=== PATIENT | male | born 1950 | race Caucasian/White ===

== ENCOUNTER 2017-08-30 12:13 | Emergency (ER) | payer MEDICARE ==
[2017-08-30 12:38] LABS: BASOPHILS 0.6 % (0-2); EOSINOPHILS 3.9 % (0-7); HEMATOCRIT 41.8 % (42.0-54.0); HEMOGLOBIN 14.1 g/dL (13.5-17.5); IMMATURE GRANULOCYTES 0.4 % (0-5); LYMPHOCYTES 35.8 % (15-50); MCH 31.2 pg (26.0-34.0); MCHC 33.7 g/dL (31.0-37.0); MCV 92.5 fL (80.0-100.0); MEAN PLATELET VOLUME 9.6 fL (7.4-10.4); MONOCYTES 7.4 % (2-11); NEUTROPHILS 51.9 % (40-80); PLATELET COUNT 174 10x3/uL (130-400); RBC 4.52 10x6/uL (4.20-6.10); RDW 13.2 % (11.5-14.5); WBC 6.7 10x3/uL (4.8-10.8)
[2017-08-30 12:51] LABS: ALBUMIN 3.2 g/dL (3.4-5.0); ANION GAP 16.5 mmol/L (8-16); BILIRUBIN - TOTAL 0.17 mg/dL (0.2-1.3); CALCIUM 8.3 mg/dL (8.5-10.1); CARBON DIOXIDE 21.9 mmol/L (21.0-32.0); CREATININE - SERUM 1.6 mg/dL (0.6-1.3); POTASSIUM - SERUM 3.4 mmol/L (3.5-5.1); PROTEIN - SERUM 6.3 g/dL (6.4-8.2)
[2017-08-30 13:13] LABS: APPEARANCE CLEAR (CLEAR); BILIRUBIN NEGATIVE (NEGATIVE); COLOR YELLOW (YELLOW); GLUCOSE NEGATIVE (NEGATIVE); KETONE NEGATIVE (NEGATIVE); NITRITE NEGATIVE (NEGATIVE); PROTEIN NEGATIVE (NEGATIVE); SPECIFIC GRAVITY 1.015 (1.005-1.020); UROBILINOGEN NORMAL (NORMAL)
[2017-08-30 13:14] LABS: UDS - AMPHET NEGATIVE QUAL (NEGATIVE); UDS - BARB NEGATIVE QUAL (NEGATIVE); UDS - BENZO NEGATIVE QUAL (NEGATIVE); UDS - COCAINE NEGATIVE QUAL (NEGATIVE); UDS - OPIATE NEGATIVE QUAL (NEGATIVE); UDS - PCP NEGATIVE QUAL (NEGATIVE); UDS - THC NEGATIVE QUAL (NEGATIVE)
== END 2017-08-30 20:50 | disposition home or self-care (01) ==
LOC: D.ER 12:13
PROVIDERS: Family Medicine
DX: F10.10 Alcohol abuse, uncomplicated (principal); I95.9 Hypotension, unspecified; F10.129 Alcohol abuse with intoxication, unspecified; I44.0 Atrioventricular block, first degree